=== PATIENT | female | born 1945 | race Caucasian/White ===

== ENCOUNTER 2018-02-22 12:45 | Emergency (ER) | payer OTHER ==
[~2018-02-22] VITALS: Ht 149.9 cm; Wt 60.8 kg
[~2018-02-22 12:45] MED LIST: CARAFATE1 GM PO; CEFTIN250 MG PO; GUAIFENESI100 MG/52 PO; LAC PO; METOPROLOL SUCC25 M1 PO; RANITIDINE HCL300 MG PO; XANAX0.25 MG PO; ZESTRIL5 MG PO
[2018-02-22 12:50] VITALS: Ht 149.9 cm; Wt 60.8 kg
[2018-02-22 16:09] VITALS: BP 130/76
== END 2018-02-22 16:09 | disposition home or self-care (01) ==
LOC: ED 12:45
DX: S30.0XXA Contusion of lower back and pelvis, initial encounter (principal); I10 Essential (primary) hypertension; M81.0 Age-related osteoporosis without current pathological fracture; W10.8XXA Fall (on) (from) other stairs and steps, initial encounter; Y93.89 Activity, other specified; Y92.89 Other specified places as the place of occurrence of the external cause; Y99.8 Other external cause status
CPT/HCPCS: J1100; J1885